=== PATIENT | male | born 1965 | race Caucasian/White ===

== ENCOUNTER 2017-06-02 17:02 | Emergency (ER) | payer MEDICAID ==
[~2017-06-02] VITALS: Ht 188 cm; Wt 111.1 kg
[~2017-06-02 17:02] MED LIST: AMLODIPINE5 M1 PO; LISINOPRIL HCTZ1 TAB PO; LORTAB 5/500 501 TAB PO; MOTRIN600 MG PO
--- OUTSIDE RECORDS SUMMARY | 2017-06-02 17:06 | External Medical Summary Rpt | CCD ---
Author Author , LETA GILLETTE Address Unknown Phone [email or web address] Care Team Providers Care Terrazzo Roller Name Role Phone SHANSHEILASHAN THOMPSONSHEILADONNA Unavailable Unavailable TAMIKO MORRISON Unavailable Unavailable LUIGI MEYERS Unavailable Unavailable [facility] Unavailable Unavailable INC, [facility] Unavailable Unavailable HOSPITAL P, [facility], Unavailable Unavailable PLL[facility], [facility] Purpose Continuity of Care Document - 09-12-2016 through 2016 Problems Code Diagnosis DOS Provider Status I10 ESSENTIAL 02-13-2017 [facility] P N [id number] ELECTROCUTI 02-13-2017 [facility] [id number] EXPOSURE 02-13-2017 [facility] P APPLIANCES INITIAL ENC I159 SECONDARY 01-14-2017 [facility] N INC UNSPECIFIED T75.4XXA ELECTROCUTI ON, INITIAL ENCOUNTER Medications Na ND Rx Da Fi Fi Am Da Di Ph RX Ph St me C No te ll ll ou ys ag ar # ys at rm s nt no ma ic us Or Da si cy ia de te s n re d LI 68 08 09 60 30 00 [place] Ac SI 64 -2 -2 .0 00 L- ti NO 50 8- 9- 00 07 MA ve MI 55 20 20 45 RT [place] 75 17 17 49 -H [address] AR Z MA 20 CY -1 2. #5 5 91 MG TA B LI 68 07 09 60 30 00 [place] Ac SI 64 -3 -0 .0 00 L- ti NO 50 0- 1- 00 07 MA ve MI 55 20 20 45 RT [place] 75 17 17 49 -H [address] AR Z MA 20 CY -1 2. #5 5 91 MG TA B LI 68 07 08 60 30 00 [place] Ac SI 64 -0 -0 .0 00 L- ti NO 50 3- 4- 00 07 MA ve MI 55 20 20 45 RT [place] 75 17 17 49 -H [address] AR Z MA 20 CY -1 2. #5 5 91 MG TA B AM 00 06 07 30 30 00 [place] Ac LO 37 -0 -0 .0 00 L- ti DI 85 7- 7- 00 07 MA ve PI 20 20 20 49 RT NE 90 17 17 22 5 48 PH BE AR SY MA LA CY TE 5 #5 91 MG TA B LI 68 06 07 60 30 00 WA Ac SI 18 -0 -0 .0 00 L- ti NO 00 4- 7- 00 07 MA ve MI 51 20 20 45 RT [place] 90 17 17 49 -H [address] AR Z MA 20 CY -1 2. #5 5 91 MG TA B LI 54 05 06 60 30 00 WA Ac SI 45 -0 -0 .0 00 L- ti NO 80 4- 9- 00 07 MA ve MI 99 20 20 45 RT IL 21 17 17 49 -H [address] AR Z MA 20 CY -1 2. #5 5 91 MG TA B LI 54 04 05 60 30 00 WA Ac SI 45 -0 -1 .0 00 L- ti NO 80 6- 2- 00 07 MA ve MI 99 20 20 45 RT IL 21 17 17 49 -H [address] AR Z MA 20 CY -1 2. #5 5 91 MG TA B LI 54 03 04 60 30 00 WA Ac SI 45 -0 -0 .0 00 L- ti NO 80 5- 7- 00 07 MA ve MI 99 20 20 45 RT IL 21 17 17 49 -H [address] AR Z MA 20 CY -1 2. #5 5 91 MG TA B CE 68 02 03 28 7 00 WA Ac PH 18 -2 -3 .0 00 L- ti AL 00 7- 1- 00 07 MA ve EX 12 20 20 47 RT IN 20 17 17 33 2 68 PH 50 AR 0 MA MG CY CA #5 PS 91 UL E LI 54 02 03 60 30 00 WA Ac SI 45 -0 -0 .0 00 L- ti NO 80 1- 3- 00 07 MA ve MI 99 20 20 45 RT IL 21 17 17 49 -H [address] AR Z MA 20 CY -1 2. #5 5 91 MG TA B LI 54 12 02 60 30 00 WA Ac SI 45 -3 -0 .0 00 L- ti NO 80 1- 3- 00 07 MA ve MI 99 20 20 45 RT IL 21 16 17 49 -H [address] AR Z MA 20 CY -1 2. #5 5 91 MG TA B Procedures Procedure DOS Code Location Performer Comment RADIOLOGI 95240 LOREE CASTILLO C EXAM 7 MEDICAL CHEST 2 IMAGING VIEWS ASS FRONTAL&[place] [address] [facility] TROPONIN 7 [facility] QUANTITAT INC INC JEANCARLOS BLOOD 16942 [facility] COUNT 7 [facility] COMPLETE INC INC AUTO&AUTO DIFRNTL WBC ECG 18150 [facility] ROUTINE 7 [facility] W/LEAST P 12 LDS I&R ONLY COMPREHEN 21735 [facility] SIVE 7 [facility] METABOLIC INC INC PANEL CREATINE 86733 [facility] KINASE MB 7 [facility] FRACTION INC INC ONLY CREATINE 30989 [facility] KINASE 7 [facility] TOTAL INC INC ECG 22839 [facility] ROUTINE 7 [facility] ECG INC INC W/LEAST 12 LDS TRCG ONLY W/O I&R LIPID 31546 [facility] PANEL 7 [facility] INC INC CREATINE 90080 [facility] KINASE 7 [facility] TOTAL INC INC CREATINE 57183 [facility] KINASE MB 7 [facility] FRACTION INC INC ONLY COLLECTIO 59939 [facility] N VENOUS 7 [facility] BLOOD INC INC VENIPUNCT URE COMPREHEN 04868 [facility] SIVE 7 [facility] METABOLIC INC INC PANEL BLOOD 92626 [facility] COUNT 7 [facility] COMPLETE INC INC AUTO&[place] [address] [facility] TROPONIN 7 [facility] QUANTITAT INC INC JEANCARLOS Encounters Encounter Start End Date Code Location Performer Type Date EMERGENCY 99643 [facility] 7 7 [facility] DEPARTMEN INC T VISIT HIGH/URGE [facility] - 7 7 [facility] OUTPATIEN INC T EMERGENCY 94283 [facility] DEPT 7 7 [facility] HIGH SEVERITY& THREAT [facility] - 7 [facility] OUTPATIEN [facility] T
--- OUTSIDE RECORDS SUMMARY | 2017-06-02 17:06 | External Medical Summary Rpt | CCD ---
Author Author , LETA GILLETTE Address Unknown Phone [email or web address] Care Team Providers Care Cell Assembly Pinner Name Role Phone SHANSHEILASHAN THOMPSONSHEILADONNA Unavailable Unavailable TAMIKO MORRISON Unavailable Unavailable LUIGI MEYERS Unavailable Unavailable [facility] Unavailable Unavailable INC, [facility] Unavailable Unavailable HOSPITAL P, [facility], Unavailable Unavailable PLLC, [facility] Purpose Continuity of Care Document - 09-12-2016 through 2016 Problems Code Diagnosis DOS Provider Status I10 ESSENTIAL 02-13-2017 [facility] P N [id number] ELECTROCUTI 02-13-2017 [facility] [id number] EXPOSURE 02-13-2017 [facility] P APPLIANCES INITIAL ENC I159 SECONDARY 01-14-2017 [facility] N INC UNSPECIFIED T75.4XXA ELECTROCUTI [...] 50 8- 9- 00 07 MA ve MN 55 20 20 45 RT IL 75 17 17 49 -H [address] AR Z MA 20 CY -1 2. #5 5 91 MG TA B LI 68 07 09 60 30 00 [place] Ac SI 64 -3 -0 .0 00 L- ti NO 50 0- 1- 00 07 MA ve MN 55 20 20 45 RT IL 75 17 17 49 -H [address] AR Z MA 20 CY -1 2. #5 5 91 MG TA B LI 68 07 08 60 30 00 [place] Ac SI 64 -0 -0 .0 00 L- ti NO 50 3- 4- 00 07 MA ve MN 55 20 20 45 RT IL 75 [...] 00 4- 7- 00 07 MA ve MN 51 20 20 45 RT IL 90 17 17 49 -H [address] AR Z MA 20 CY -1 2. #5 5 91 MG TA B LI 54 05 06 60 30 00 [place] Ac SI 45 -0 -0 .0 00 L- ti NO 80 4- 9- 00 07 MA ve MN 99 20 20 45 RT IL 21 17 17 49 -H [address] AR Z MA 20 CY -1 2. #5 5 91 MG TA B LI 54 04 05 60 30 00 [place] Ac SI 45 -0 -1 .0 00 L- ti NO 80 6- 2- 00 07 MA ve MN 99 20 20 45 RT IL 21 17 17 49 -H [address] AR Z MA 20 CY -1 2. #5 5 91 MG TA B LI 54 03 04 60 30 00 [place] Ac SI 45 -0 -0 .0 00 L- ti NO 80 5- 7- 00 07 MA ve MN 99 20 20 45 RT IL 21 [...] 80 1- 3- 00 07 MA ve MN 99 20 20 45 RT IL 21 17 17 49 -H [address] AR Z MA 20 CY -1 2. #5 5 91 MG TA B LI 54 12 02 60 30 00 WA Ac SI 45 -3 -0 .0 00 L- ti NO 80 1- 3- 00 07 MA ve MN 99 20 20 45 RT IL 21 16 17 49 -H [address] AR Z MA 20 CY -1 2. #5 5 91 MG TA B Procedures Procedure DOS Code Location Performer Comment RADIOLOGI 57835 LOREE CASTILLO C EXAM 7 MEDICAL CHEST 2 IMAGING VIEWS ASS FRONTAL&[place] [address] [facility] TROPONIN 7 [facility] QUANTITAT INC INC JEANCARLOS BLOOD 48033 [facility] COUNT 7 [facility] COMPLETE INC INC AUTO&AUTO DIFRNTL WBC ECG 80369 [facility]RISON ROUTINE 7 [facility] W/LEAST P 12 LDS I&R ONLY COMPREHEN 30231 [facility] SIVE 7 [facility] METABOLIC INC INC PANEL CREATINE 95595 [facility] KINASE MB 7 [facility] FRACTION INC INC ONLY CREATINE 37394 [facility] KINASE 7 [facility] TOTAL INC INC ECG 56149 [facility] ROUTINE 7 [facility] ECG INC INC W/LEAST 12 LDS TRCG ONLY W/O I&R LIPID 32880 [facility] PANEL 7 [facility] INC INC CREATINE 67648 [facility] KINASE 7 [facility] TOTAL INC INC CREATINE 01406 [facility] KINASE MB 7 [facility] FRACTION INC INC ONLY COLLECTIO 90436 [facility] N VENOUS 7 [facility] BLOOD INC INC VENIPUNCT URE COMPREHEN 84138 [facility] SIVE 7 [facility] METABOLIC INC INC PANEL BLOOD 89494 [facility] COUNT 7 [facility] COMPLETE INC INC AUTO&[place] [address] [facility] TROPONIN 7 [facility] QUANTITAT INC INC JEANCARLOS Encounters Encounter Start End Date Code Location Performer Type Date EMERGENCY 21276 [facility] 7 7 [facility] DEPARTMEN INC T VISIT HIGH/URGE [facility] - 7 7 [facility] OUTPATIEN INC T EMERGENCY 16893 [facility] MEYESR DEPT 7 7 PHYSICIAN VISIT S, PLL[facility] HIGH SEVERITY& [facility] 7 [facility] OUTPATIEN [facility] T
--- OUTSIDE RECORDS SUMMARY | 2017-06-02 17:07 | External Medical Summary Rpt | CCD ---
Demographics Preferred Language Brazilian Marital Status Unknown Islam Affiliation Unknown Race Unknown Ethnic Group Unknown Author Author , DAVID GILLETTE Address Unknown Phone Immunization No patient found.
--- OUTSIDE RECORDS SUMMARY | 2017-06-02 17:07 | External Medical Summary Rpt ---
Author Author LETA Jay, [employer] Organization [employer] Address Unknown Phone Unavailable Results CBC W Auto Differential panel in Blood Observa Value Referen Units Interpr Notes Date tion ce etation Range Basophils 0 - 0.2 K/MM3 Normal No Feb 13 informati 2016 7:45 [#/volume on in PM ] in source Blood by data Automated count Basophils 0.1 - 2.0 % Normal No Feb 13 informati 2016 7:45 leukocyte on in PM s in source Blood by data Automated count Eosinophi 0.0 - 0.4 K/mm3 Normal No Feb 13 ls informati 2016 7:45 [#/volume on in PM ] in source Blood by data Automated count Eosinophi 0.1 - % Normal No Feb 13 ls/100 12.0 informati 2016 7:45 leukocyte on in PM s in source Blood by data Automated count Granulocy 1.3 - 8.0 K/mm3 Normal No Feb 13 clarice informati 2017 7:45 [#/volume on in PM ] in source Blood by data Automated count Granulocy 37.0 - % Normal No Feb 13 clarice/100 80.0 informati 2016 7:45 leukocyte on in PM s in source Blood by data Automated count Hematocri 42.0 - % Normal No Feb 13 t [Volume 52.0 informati 2016 7:45 on in PM Fraction] source of Blood data Hemoglobi 14.1 - g/dL Normal No Feb 13 n 18.0 informati 2016 7:45 [Mass/vol on in PM ume] in source Blood data Lymphocyt 0.7 - 4.5 K/mm3 Normal No Feb 13 es informati 2016 7:45 [#/volume on in PM ] in source Unspecifi data ed specimen by Automated count Lymphocyt 10 - 50 % Normal No Feb 13 es informati 2016 7:45 [#/volume on in PM ] in source Unspecifi data ed specimen by Automated count Erythrocy 27 - 31.2 pg Normal No Feb 13 te mean informati 2016 7:45 corpuscul on in PM ar source hemoglobi data n [Entitic mass] Erythrocy 31.8 - g/dl Normal No Feb 13 te mean 35.4 informati 2017 7:45 corpuscul on in PM ar source hemoglobi data n concentra tion [Mass/vol ume] by Automated count Erythrocy 82.2 - fl Normal No Feb 13 te mean 97.8 informati 2016 7:45 corpuscul on in PM ar volume source [Entitic data volume] by Automated count Monocytes 0.1 - 1.0 K/mm3 Normal No Feb 13 informati 2016 7:45 [#/volume on in PM ] in source Blood by data Automated count Monocytes 1.7 - 9.3 % Normal No Feb 13 informati 2016 7:45 leukocyte on in PM s in source Blood by data Automated count Platelet 7.4 - fl Normal No Feb 13 mean 10.4 informati 2016 7:45 volume on in PM [Entitic source volume] data in Blood by Automated count Platelets 142 - 424 K/mm3 Normal No Feb 13 informati 2016 7:45 [#/volume on in PM ] in source Blood data Erythrocy 4.6 - 6.2 M/mm3 Normal No Feb 13 clarice informati 2017 7:45 [#/volume on in PM ] in source Amniotic data fluid Erythrocy 11.5 - % Normal No Feb 13 te 17.5 informati 2017 7:45 distribut on in PM ion width source [Entitic data volume] by Automated count Leukocyte 4.8 - K/MM3 Normal No Feb 13 s 10.8 informati 2016 7:45 [#/volume on in PM ] in source Blood data CBC W Auto Differential panel in Blood Observa Value Referen Units Interpr Notes Date tion ce etation Range Basophils 0 - 0.2 K/MM3 Normal No Jan 14 informati 2016 2:07 [#/volume on in PM ] in source Blood by data Automated count Basophils 0.1 - 2.0 % Normal No Jan 14 informati 2016 2:07 leukocyte on in PM s in source Blood by data Automated count Eosinophi 0.0 - 0.4 K/mm3 Normal No Jan 14 ls informati 2016 2:07 [#/volume on in PM ] in source Blood by data Automated count Eosinophi 0.1 - % Normal No Jan 14 ls/100 12.0 informati 2017 2:07 leukocyte on in PM s in source Blood by data Automated count Granulocy 1.3 - 8.0 K/mm3 Normal No Jan 7 clarice informati 2017 2:07 [#/volume on in PM ] in source Blood by data Automated count Granulocy 37.0 - % Normal No Jan 7 clarice/100 80.0 informati 2017 2:07 leukocyte on in PM s in source Blood by data Automated count Hematocri 42.0 - % Normal No Jan 14 t [Volume 52.0 informati 2017 2:07 on in PM Fraction] source of Blood data Hemoglobi 14.1 - g/dL Normal No Jan 14 n 18.0 informati 2017 2:07 [Mass/vol on in PM ume] in source Blood data Lymphocyt 0.7 - 4.5 K/mm3 Normal No Jan 14 es informati 2017 2:07 [#/volume on in PM ] in source Unspecifi data ed specimen by Automated count Lymphocyt 10 - 50 % Normal No Jan 14 es informati 2016 2:07 [#/volume on in PM ] in source Unspecifi data ed specimen by Automated count Erythrocy 27 - 31.2 pg Normal No Jan 14 te mean informati 2017 2:07 corpuscul on in PM ar source hemoglobi data n [Entitic mass] Erythrocy 31.8 - g/dl Normal No Jan 14 te mean 35.4 informati 2017 2:07 corpuscul on in PM ar source hemoglobi data n concentra tion [Mass/vol ume] by Automated count Erythrocy 82.2 - fl Normal No Jan 14 te mean 97.8 informati 2016 2:07 corpuscul on in PM ar volume source [Entitic data volume] by Automated count Monocytes 0.1 - 1.0 K/mm3 Normal No Jan 7 informati 2017 2:07 [#/volume on in PM ] in source Blood by data Automated count Monocytes 1.7 - 9.3 % Normal No Jan 7 /100 informati 2017 2:07 leukocyte on in PM s in source Blood by data Automated count Platelet 7.4 - fl Normal No Jan 7 mean 10.4 informati 2016 2:07 volume on in PM [Entitic source volume] data in Blood by Automated count Platelets 142 - 424 K/mm3 Normal No Jan 7 informati 2016 2:07 [#/volume on in PM ] in source Blood data Erythrocy 4.6 - 6.2 M/mm3 Normal No Jan 7 clarice informati 2017 2:07 [#/volume on in PM ] in source Amniotic data fluid Erythrocy 11.5 - % Normal No Jan 7 te 17.5 informati 2017 2:07 distribut on in PM ion width source [Entitic data volume] by Automated count Leukocyte 4.8 - K/MM3 Normal No Jan 7 s 10.8 informati 2017 2:07 [#/volume on in PM ] in source Blood data
--- OUTSIDE RECORDS SUMMARY | 2017-06-02 17:07 | External Medical Summary Rpt | CCD ---
Author Author , LETA GILLETTE Address Unknown Phone Care Team Providers Care Screen Tender Name Role Phone TAMIKO MORRISON Unavailable Unavailable LUIGI MEYERS Unavailable Unavailable [facility] Unavailable Unavailable INC, [facility] Unavailable Unavailable HOSPITAL P, [facility], Unavailable Unavailable PLL[facility], [facility] Purpose Continuity of Care Document - 09-12-2016 through 2016 Problems Code Diagnosis DOS Provider Status I10 ESSENTIAL 02-13-2017 [facility] P N [id number] ELECTROCUTI 02-13-2017 [facility] [id number] EXPOSURE 02-13-2017 [facility] P APPLIANCES INITIAL ENC I159 SECONDARY 01-14-2017 [facility] N INC UNSPECIFIED Medications Na ND Rx Da Fi Fi [...] 50 8- 9- 00 07 MA ve IN 55 20 20 45 RT [place] 75 17 17 49 -H [address] AR Z MA 20 CY -1 2. #5 5 91 MG TA B LI 68 07 09 60 30 00 [place] Ac SI 64 -3 -0 .0 00 L- ti NO 50 0- 1- 00 07 MA ve IN 55 20 20 45 RT [place] 75 17 17 49 -H [address] AR Z MA 20 CY -1 2. #5 5 91 MG TA B LI 68 07 08 60 30 00 WA Ac SI 64 -0 -0 .0 00 L- ti NO 50 3- 4- 00 07 MA ve IN 55 20 20 45 RT IL 75 [...] 00 4- 7- 00 07 MA ve IN 51 20 20 45 RT IL 90 17 17 49 -H [address] AR Z MA 20 CY -1 2. #5 5 91 MG TA B LI 54 05 06 60 30 00 WA Ac SI 45 -0 -0 .0 00 L- ti NO 80 4- 9- 00 07 MA ve IN 99 20 20 45 RT IL 21 17 17 49 -H [address] AR Z MA 20 CY -1 2. #5 5 91 MG TA B LI 54 04 05 60 30 00 WA Ac SI 45 -0 -1 .0 00 L- ti NO 80 6- 2- 00 07 MA ve IN 99 20 20 45 RT IL 21 17 17 49 -H [address] AR Z MA 20 CY -1 2. #5 5 91 MG TA B LI 54 03 04 60 30 00 WA Ac SI 45 -0 -0 .0 00 L- ti NO 80 5- 7- 00 07 MA ve IN 99 20 20 45 RT IL 21 [...] 80 1- 3- 00 07 MA ve IN 99 20 20 45 RT IL 21 17 17 49 -H [address] AR Z MA 20 CY -1 2. #5 5 91 MG TA B LI 54 12 02 60 30 00 WA Ac SI 45 -3 -0 .0 00 L- ti NO 80 1- 3- 00 07 MA ve IN 99 20 20 45 RT IL 21 16 17 49 -H [address] AR Z MA 20 CY -1 2. #5 5 91 MG TA B Procedures Procedure DOS Code Location Performer Comment COMPREHEN 21821 [facility] SIVE 7 [facility] METABOLIC INC INC PANEL CREATINE 11380 [facility] KINASE MB 7 [facility] FRACTION INC INC ONLY ECG 75155 G[facility] ROUTINE 7 [facility] ECG INC INC W/LEAST 12 LDS TRCG ONLY W/O I&R CREATINE 74665 [facility] KINASE 7 [facility] TOTAL INC INC RADIOLOGI 65517 [facility] C EXAM 7 [facility] CHEST 2 INC INC VIEWS FRONTAL&L ATERAL ECG 95601 [facility] ROUTINE 7 [facility] W/LEAST P 12 LDS [place] [address] [facility] TROPONIN 7 [facility] QUANTITAT INC INC JEANCARLOS BLOOD 58727 [facility] COUNT 7 [facility] COMPLETE INC INC AUTO&AUTO DIFRNTL WBC COMPREHEN 12467 [facility] SIVE 7 [facility] METABOLIC INC INC PANEL BLOOD 30924 [facility] COUNT 7 [facility] COMPLETE INC INC AUTO&[place] [address] [facility] TROPONIN 7 [facility] QUANTITAT INC INC JEANCARLOS LIPID 91870 [facility] PANEL 7 [facility] INC INC CREATINE 05931 [facility] KINASE 7 [facility] TOTAL INC INC COLLECTIO 38792 [facility] N VENOUS 7 [facility] BLOOD INC INC VENIPUNCT URE CREATINE 55592 [facility] KINASE MB 7 [facility] FRACTION INC INC ONLY Encounters Encounter Start End Date Code Location Performer Type Date HOSPITAL [facility] - 7 7 [facility] OUTPATIEN INC T EMERGENCY 01948 AMIE MEYERS DEPT 7 7 PHYSICIAN VISIT S, PLLC HIGH SEVERITY& THREAT [facility] EMERGENCY 32142 [facility] 7 7 [facility] DEPARTMEN INC T VISIT HIGH/URGE NT SEVERITY HOSPITAL [facility] Vargas 7 [facility] T
--- OUTSIDE RECORDS SUMMARY | 2017-06-02 17:07 | External Medical Summary Rpt | CCD ---
Author Author , LETA GILLETTE Address Unknown Phone [email or web address] Care Team Providers Care Solution Mixer Name Role Phone TAMIKO MORRISON Unavailable Unavailable LUIGI MEYERS Unavailable Unavailable [facility] Unavailable Unavailable INC, [facility] Unavailable Unavailable [facility], [facility], [facility] Purpose Continuity of Care Document - 09-12-2016 through 2016 Problems Code Diagnosis DOS Provider Status I10 ESSENTIAL 02-13-2017 [facility] P N [id number] ELECTROCUTI 02-13-2017 [facility] [id number] EXPOSURE 02-13-2017 [facility] P APPLIANCES INITIAL ENC I159 SECONDARY 01-14-2017 [facility] N INC UNSPECIFIED Medications Na ND [...] 50 8- 9- 00 07 MA ve ND 55 20 20 45 RT [place] 75 17 17 49 -H [address] AR Z MA 20 CY -1 2. #5 5 91 MG TA B LI 68 07 09 60 30 00 [place] Ac SI 64 -3 -0 .0 00 L- ti NO 50 0- 1- 00 07 MA ve ND 55 20 20 45 RT [place] 75 17 17 49 -H [address] AR Z MA 20 CY -1 2. #5 5 91 MG TA B LI 68 07 08 60 30 00 [place] Ac SI 64 -0 -0 .0 00 L- ti NO 50 3- 4- 00 07 MA ve ND 55 20 20 45 RT IL 75 [...] 00 4- 7- 00 07 MA ve ND 51 20 20 45 RT [place] 90 17 17 49 -H [address] AR Z MA 20 CY -1 2. #5 5 91 MG TA B LI 54 05 06 60 30 00 [place] Ac SI 45 -0 -0 .0 00 L- ti NO 80 4- 9- 00 07 MA ve ND 99 20 20 45 RT [place] 21 17 17 49 -H [address] AR Z MA 20 CY -1 2. #5 5 91 MG TA B LI 54 04 05 60 30 00 [place] Ac SI 45 -0 -1 .0 00 L- ti NO 80 6- 2- 00 07 MA ve ND 99 20 20 45 RT [place] 21 17 17 49 -H [address] AR Z MA 20 CY -1 2. #5 5 91 MG TA B LI 54 03 04 60 30 00 [place] Ac SI 45 -0 -0 .0 00 L- ti NO 80 5- 7- 00 07 MA ve ND 99 20 20 45 RT IL 21 [...] 80 1- 3- 00 07 MA ve ND 99 20 20 45 RT [place] 21 17 17 49 -H [address] AR Z MA 20 CY -1 2. #5 5 91 MG TA B LI 54 12 02 60 30 00 [place] Ac SI 45 -3 -0 .0 00 L- ti NO 80 1- 3- 00 07 MA ve ND 99 20 20 45 RT [place] 21 16 17 49 -H [address] AR Z MA 20 CY -1 2. #5 5 91 MG TA B Procedures Procedure DOS Code Location Performer Comment COMPREHEN 05160 [facility] S[facility] PANEL CREATINE 53645 [facility] KINASE MB 7 [facility] FRACTION [facility] INC ONLY ECG 72806 [facility] ROUTINE 7 [facility] ECG INC INC W/LEAST 12 LDS TRCG ONLY W/O I&R CREATINE 54749 [facility] KINASE 7 [facility] TOTAL INC INC RADIOLOGI 81177 [facility] C EXAM 7 [facility] CHEST 2 INC INC VIEWS FRONTAL&L ATERAL ECG 04071 [facility] ROUTINE 7 [facility] W/LEAST P 12 LDS [place] [address] [facility] TROPONIN 7 [facility] QUANTITAT INC INC JEANCARLOS BLOOD 14714 [facility] COUNT 7 [facility] COMPLETE INC INC AUTO&AUTO DIFRNTL WBC COMPREHEN 44546 [facility] SIVE 7 [facility] METABOLIC INC INC PANEL BLOOD 82195 [facility] COUNT 7 [facility] COMPLETE INC INC AUTO&[place] [address] [facility] TROPONIN 7 [facility] QUANTITAT INC INC JEANCARLOS LIPID 76768 [facility] PANEL 7 [facility] INC INC CREATINE 73440 [facility] KINASE 7 [facility] TOTAL INC INC COLLECTIO 21897 [facility] N VENOUS 7 [facility] BLOOD INC INC VENIPUNCT URE CREATINE 74434 [facility] KINASE MB 7 [facility] FRACTION INC INC ONLY Encounters Encounter Start End Date Code Location Performer Type Date HOSPITAL [facility] - 7 7 [facility] OUTPATIEN INC T EMERGENCY 01746 [facility] DEPT 7 [facility] HIGH SEVERITY& THREAT FUNCJ EMERGENCY 20941 [facility] 7 7 [facility] DEPARTMEN INC T VISIT HIGH/URGE NT SEVERITY HOSPITAL [facility]as 7 [facility] T
--- OUTSIDE RECORDS SUMMARY | 2017-06-02 17:07 | External Medical Summary Rpt | CCD ---
Demographics Preferred Language Zambian Marital Status Unknown [employer] Affiliation Unknown Race Unknown Ethnic Group Unknown Author Author , DAVID GILLETTE Address Unknown Phone Immunization No patient found.
--- NOTE | 2017-06-02 17:17 | Urgent Treatment Center Report ---
History of Present Issue Date/Time Seen by Provider 06/02/17 1714 Visit Reason Pt arrived:Walked Presenting Problem:C/O COUGH AND CHEST CONGESTION Location if Accident: Onset of symptoms date/time:/ or onset unknown for:MEDICAL HX UNKNOWN Have you (or family members/close friends) recently traveled outside the [place]? N If Yes, where/when: Have you had exposure to infectious disease within the past month? TB? Other? Specify: Patient state that he has not been feeling well for several days States that he worked out in the rain the other day and thinks it may have got him sick. State that he has felt feverish and feels like he may have some sinus drainage running down his throat and making him cough and feel like he is having chest congestion ALLERGIES Coded Allergies: Fish Containing Products (02/13/17) Home Medications Reported Medications LISINOPRIL/HYDROCHLOROTHIAZIDE (Lisinopril-Hctz 20-25 MG Tab) 1 TAB PO DAILY History Medical History General CAD? No Angina: No RI: No Hypertension? Yes Hyperlipidemia? No CHF? No DVT? No PE? No COPD? No Asthma? No Anemia? No GERD? No Gastric ulcers? No GI Bleed? No Hernia? No Thyroid Problems? No Hypothyroidism? No CVA? No Seizures? No Diabetes? No Renal Insuffiency? No UTI? No Stones? No BPH? No GB Disease: No Nephritic Syndrome? No Asplenia? No Hepatitis? No Sickle Cell Disease? No Arthritis? No Migraines? No Cataracts? No Glaucoma? No MRSA? No HIV? No TB? No Anxiety? No Depression? No Cancer? No Site: N More? No Immunization HX DT/Tetanus 03/31/09 Surgical Hx Previous Surgery?Y HAND SURGERY Social History Smoking Hx Smoker: Never Smoker Tobacco: No Alcohol Alcohol: Yes Review of Systems All Other Systems Reviewed and Negative Constitutional fever ENT nose congestion, throat pain. Respiratory cough, denies shortness of breath, denies wheezing Physical Exam Vital Signs Vital Signs Date Time Temp Pulse Resp B/P Pulse O2 O2 Flow FiO2 Ox Delivery Rate 06/02 1711 98.2 87 20 141/95 97 General Appearance normal appearance, WD/WN, no apparent distress Ear, Nose, Throat Throat red irritated, drainage noted in back of throat, tenderness noted maxillary sinuses Respiratory Status Yes: trachea midline, chest symmetrical. No: respiratory distress. Lung Sounds bilateral: normal breath sounds, lungs clear. Cardiovascular normal exam, regular rate/rhythm Neurologic alert, normal exam, oriented x 3 Medical Decision Making LABS/Meds/Orders Pt receiving controlled substance in ED? No Progress [facility] Progress Notes Comment Patient refused chest xray patient informed of risks associated with not getting the xray as he may have pneumonia and xray would help to see that and still refused xray Departure Departure Time of Disposition 1725 Disposition DC Home or Self Care(routine) Clinical Impression Primary Impression: Upper respiratory infection Qualifiers: URI type: unspecified URI Qualified Code: J06.9 - Acute upper respiratory infection, unspecified Condition STABLE Patient Instructions Cough, DI for Cough -- Adult, DI for Fever (Symptom) -- Adult, DI for Nasal Congestion, Guaifenesin Additional Instructions * Monitor Temp. Tylenol and/or Ibuprofen as needed. ER if fever is no less than 101 despite alternating Tylenol and Ibuprofen * Encourage fluids, water, Gatorade, powerade, pedialyte if infant/toddler/or child * Warm salt water gargles for throat irritation *Warm fluids *Sore throat lozenges *Sleep elevated *humidifier or vaporizer Lots of rest Increase fluids, water, Gatorade, powerade *Flonase 2 sprays each nostril daily but may take 2-3 days to notice improvement with it Follow up IMMEDIATELY for new or worsening of symptoms OR no noticeable improvement over the next 48-72 hours. 911 immediately for any life threatening symptoms such as chest pain or difficulty breathing Discharge Counseling Counseled pt/family regarding diagnosis, medications/RX, home care, follow up needs Prescriptions Current Visit Scripts Azithromycin (Zithromycin (Z-ZION) 250MG Tab) 250 MG PO DAILY #6 TAB TAKE TWO (2) TABLETS ON DAY 1, THEN ONE (1) TABLET DAY #2 THRU #5 Fluticasone Propionate (Flonase 50 Mcg Nasal [place]) 2 SPRAY NA DAILY #1 BOT Methylprednisolone (Medrol Dose [place]) 4 MG PO UD #1 ZION TAKE DIRECTED ON PACKAGING Benzonatate (Tessalon Perle) 100 MG PO TID #15 SGL Albuterol Sulfate (Proair Hfa) 2 PUFFS IH Q6HP PRN soa #1 INH at 6340
[2017-06-02] MEDS ORDERED: ZITHROMAX Z PA250 MG PO (17:27)
[2017-06-02] MEDS ORDERED: TESSALON PERLE100 M1 PO (17:27)
[2017-06-02] MEDS ORDERED: MEDROL 4MG. DOSE4 MG PO (17:27)
[2017-06-02] MEDS ORDERED: FLONASE 50 MCG16 GM (17:27)
[2017-06-02] MEDS ORDERED: PROAIR HFA0.09 MG/AC IH (17:27)
[2017-06-02 17:29] VITALS: BP 141/95
== END 2017-06-02 17:30 | disposition home or self-care (01) ==
LOC: UTC 17:02
DX: J06.9 Acute upper respiratory infection, unspecified (principal); I10 Essential (primary) hypertension